=== PATIENT | female | born 1960 | race Caucasian/White ===

== ENCOUNTER 2020-02-08 10:56 | Emergency (ER) | payer OTHER ==
[~2020-02-08] VITALS: Ht 170.2 cm; Wt 71.7 kg
[~2020-02-08 10:56] MED LIST: ACETAMINOPHEN-1 EAC1 PO; CEPHALEXIN 500500 M3 PO; COLESTEROL; IBUPROFEN 800800 M1 PO
[2020-02-08 11:37] VITALS: BP 169/91
== END 2020-02-08 11:37 | disposition home or self-care (01) ==
LOC: M.ERS 10:56
DX: S63.275A Dislocation of unspecified interphalangeal joint of left ring finger, initial encounter (principal); W01.0XXA Fall on same level from slipping, tripping and stumbling without subsequent striking against object, initial encounter; Y93.89 Activity, other specified; Y92.89 Other specified places as the place of occurrence of the external cause; Y99.8 Other external cause status

== ENCOUNTER 2020-05-26 12:10 | Emergency (ER) | payer OTHER ==
[~2020-05-26] VITALS: Ht 160 cm; Wt 66.2 kg
[2020-05-26] MEDS ORDERED: NAPROSYN500 M1 PO (12:24)
[2020-05-26] MEDS ORDERED: SIMVASTATIN80 MG PO (12:24)
[2020-05-26 12:37] LABS: ABSOLUTE BASOPHILS 0.1 thou/uL (0.0-0.2); ABSOLUTE LYMPHOCYTES 2.2 thou/uL (0.8-5.3); ABSOLUTE MONOCYTES 0.8 thou/uL (0.0-1.2); BASOPHILS 0.5 %; EOSINOPHILS 0.1 %; HEMATOCRIT 39.9 % (37.0-47.0); HEMOGLOBIN 13.4 gm/dL (12.0-15.0); LYMPHOCYTES 16.6 %; MCH 31.4 pg (26.0-34.0); MCHC 33.5 g/dL (28.0-37.0); MCV 93.7 fL (80.0-100.0); MONOCYTES 5.9 %; MPV 9.6 fl. (7.2-11.1); NUCLEATED RBCS 0 /100WBC; PLATELET COUNT* 163 thou/uL (150-400); POLYS 76.9 %; RBC 4.25 mil/uL (4.20-5.00); RDW-CV 13.6 % (10.5-14.5)
[2020-05-26 12:43] LABS: CREATININE 0.8 mg/dL (0.6-1.3); POTASSIUM 3.6 mmol/L (3.5-5.1)
[2020-05-26 12:48] LABS: ALBUMIN 4.3 g/dL (3.4-5.0); APTT 27.1 Seconds (25.0-31.3); PROTIME 10.6 Seconds (9.20-11.50); TOTAL BILIRUBIN 0.8 mg/dL (<0.1-1.0); TOTAL PROTEIN 7.6 g/dL (6.4-8.2)
[2020-05-26 13:52] VITALS: BP 177/84
--- NOTE | 2020-05-26 15:53 | EKG ---
[place] [address] ELECTROCARDIOGRAM REPORT Name: LANCECHUNG EVIE Room: [facility]#: [id number] Admission: 05/26/20 Attend Phys: Discharge: 05/26/20 Date of : 60 Date of Service: 05/26/20 1227 Report #: [id number] THIS REPORT FOR: //name// [facility] ED Test Date: 2020-05-26 Test Time: 12:27:19 Pat Name: CHUNG LUCAS Department: Room: Gender: F Customizer: [facility] : 1960 Requested By: Clay Pérez Order Number: [id number] MD: Misha Guan Measurements Intervals [place] Rate: 68 P: 62 FL: 175 QRS: 18 QRSD: 118 T: 31 QT: 451 QTc: 480 Interpretive Statements Sinus rhythm Incomplete right bundle branch block Anteroseptal infarct, age indeterminate No previous ECG available for comparison Electronically Signed On 05-26-2020 15:53:40 CDT by Misha Guan [email or web address] <ELECTRONICALLY SIGNED> By: Misha Guan MD, [facility] 05/26/20 1553 1227 1227 Misha Guan MD, [facility] /EPI
== END 2020-05-26 13:52 | disposition short-term general hospital (02) ==
LOC: M.ERS 12:10
PROVIDERS: Emergency Medicine Emergency Medical Services
DX: S06.5X9A Traumatic subdural hemorrhage with loss of consciousness of unspecified duration, initial encounter (principal); R11.10 Vomiting, unspecified; E78.00 Pure hypercholesterolemia, unspecified; Z20.822 Contact with and (suspected) exposure to COVID-19; Z79.899 Other long term (current) drug therapy; X58.XXXA Exposure to other specified factors, initial encounter; Y93.89 Activity, other specified; Y92.89 Other specified places as the place of occurrence of the external cause; Y99.8 Other external cause status